=== PATIENT | male | born 2000 | race Caucasian/White ===

== ENCOUNTER 2020-02-19 16:28 | Outpatient (REF) | payer OTHER, SELFPAY | END 2020-02-19 16:29 | disposition home or self-care (01) | LOC: HO.LAB 16:28 | PROVIDERS: PCP Pediatrics; Visit Provider Internal Medicine | DX: Z20.828 Contact with and (suspected) exposure to other viral communicable diseases (principal) | CPT/HCPCS: U0003 ==

== ENCOUNTER → 2020-10-06 13:02 | Outpatient (BNVA) | payer OTHER, SELFPAY | PROVIDERS: Visit Provider Orthopaedic Surgery | DX: M67.431 Ganglion, right wrist (principal) | CPT/HCPCS: 20612 ==

== ENCOUNTER 2022-07-04 10:05 | Outpatient (REF) | payer OTHER, SELFPAY ==
--- NOTE | ~2022-07-04 | XR_ITS ---
EXAMINATION: XR CHEST CLINICAL INFORMATION: Chest pain. COMPARISON: None TECHNIQUE: 2 views of the chest were obtained. FINDINGS: No significant abnormality is noted involving the heart, lungs, mediastinum, bony thorax or soft tissues. XR/XR chest 2V IMPRESSION: No acute cardiopulmonary process.
== END 2022-07-04 10:06 | disposition home or self-care (01) ==
LOC: HO.HMGCX 10:05
PROVIDERS: PCP Internal Medicine; Visit Provider Internal Medicine
DX: R07.9 Chest pain, unspecified (principal)
CPT/HCPCS: 71046

== ENCOUNTER 2022-07-25 10:36 | Outpatient (REF) | payer OTHER, SELFPAY ==
[2022-07-25 11:30] LABS: MANUAL DIFF FLAG NO
[2022-07-25 11:51] LABS: Basophils Percent Auto 0.4 % (0-2); Eosinophils Absolute Auto 0.5 X10*3/uL (0.0-0.4); Eosinophils Percent Auto 5.2 % (0-4); Hemoglobin 14.5 g/dl (14.0-18.0); Imm Gran Abs Auto 0.03 X10*3/uL (0.00-0.03); Imm Gran Pct Auto 0.3 % (0.0-0.4); Lymphocytes Absolute Auto 2.9 X10*3/uL (1.2-4.9); Lymphocytes Percent Auto 30.8 % (20-40); Mean Corpuscular HGB Conc 33.7 g/dl (31.0-36.0); Mean Corpuscular Hemoglobin 29.8 pg (27.0-33.0); Mean Corpuscular Volume 88.5 fL (80.0-98.0); Mean Platelet Volume 10.1 fL (9.4-12.4); Monocytes Absolute Auto 0.7 X10*3/uL (0.1-1.2); Monocytes Percent Auto 7.2 % (2-11); Neutrophils Absolute Auto 5.3 x10*3/uL (2.0-8.3); Neutrophils Percent Auto 56.1 % (45-73); Platelet Count 260 X10*3/uL (160-400); Red Blood Count 4.86 X10*6/uL (4.60-5.80); Red Cell Distribution Width 12.8 % (11.0-16.0); White Blood Count 9.5 X10*3/uL (4.8-10.8)
[2022-07-25 12:30] LABS: Alanine Aminotransferase 21 U/L (0-40); Aspartate Amino Transferase 21 U/L (5-37); Cholesterol 186 mg/dL; Glucose Fasting 80 mg/dL (60-99); HDL Cholesterol 55 mg/dL; LDL Cholesterol Calculated 122 mg/dl; TSH reflex Free T4 1.66 uIU/mL (0.32-4.0); Triglycerides 49 mg/dL
[2022-07-26 07:19] LABS: HIV AB/AG Nonreactive (Nonreactive); HIV Num 1 0.07 S/CO (0.00-0.99)
== END 2022-07-25 10:37 | disposition home or self-care (01) ==
LOC: HO.HMGCLDS 10:36
PROVIDERS: PCP Internal Medicine; Visit Provider Internal Medicine
DX: Z00.01 Encounter for general adult medical examination with abnormal findings (principal); R68.89 Other general symptoms and signs; Z20.2 Contact with and (suspected) exposure to infections with a predominantly sexual mode of transmission
CPT/HCPCS: 36415; 80061; 82947; 84443; 84450; 84460; 85025; 87389

== ENCOUNTER 2022-11-05 11:35 | Emergency (ER) | payer OTHER, SELFPAY ==
--- NOTE | ~2022-11-05 | XR_ITS ---
EXAMINATION: XR ABDOMEN KUB CLINICAL INDICATION: Right-sided abdominal pain. Evaluate stool burden. COMPARISON: None available. TECHNIQUE: AP views of the abdomen. FINDINGS: Mild stool burden. Nonobstructive bowel gas pattern. No abnormal soft tissue calcification. No acute osseous abnormality. XR/XR KUB IMPRESSION: Mild stool burden.
[2022-11-05 11:42] VITALS: BP 130/78; PULSE 72; RESP 16; TEMP 35.8; O2SAT 99; BMI 28.1
--- NOTE | 2022-11-05 11:54 | ED.ABDPAIN ---
HPI - Abdominal Pain General Chief Complaint: Abdominal Pain Stated Complaint: constipation Time Seen by Provider: 11/05/22 11:49 Source: patient Mode of arrival: ambulatory Limitations: no limitations History of Present Illness HPI narrative: 21 yo male healthy here with complaints of constipation, now diarrhea. Was on vacation at [facility] last week. Had constipation so he took miralax on Sunday, had small liquid stool that night. Still felt he needed to move his bowels so took additional dose of miralax Sunday, then two tablets of magnesium citrate followed by a bottle of magnesium citrate. He had alot of diarrhea after that but still feels bloated and that he needs to move his bowels. Took milk of magnesium last night but still feeling like he needs to move his bowels. No abdominal pain, vomiting, fever, urinary symptoms. Related Data Home Medications Medication Instructions Recorded Confirmed No Known Home Meds 03/28/21 Allergies Allergy/AdvReac Type Severity Reaction Status Date / Time strawberry [STRAWBERRY] Allergy Unknown RASH Verified 07/25/22 10:08 Review of Systems Review of Systems Yes all other systems are reviewed and are negative Constitutional: Reports no additional constitutional complaints, Denies body ache(s), Denies chills, Denies fever(s), Denies headache(s) and Denies weakness Eyes: Reports no additional eye complaints and Denies change in vision Reports system reviewed and no additional complaints, except as documented, Denies dizziness, Denies headache(s), Denies nasal congestion, Denies nasal discharge and Denies neck pain Cardiovascular: Reports no additional cardiovascular complaints, Denies chest pain, Denies leg edema and Denies dyspnea Respiratory: Reports no additional respiratory complaints, Denies cough and Denies dyspnea Gastrointestinal: Reports no additional gastrointestinal complaints, Denies abdominal pain, Reports constipation, Denies diarrhea, Denies nausea and Denies vomiting Genitourinary: Denies urinary incontinence Musculoskeletal: Reports no additional musculoskeletal complaints, Denies back pain, Denies arthralgias, Denies joint swelling, Denies neck pain, Denies numbness and Denies tingling Skin/Breast: Reports system reviewed and no additional complaints, except as docu and Denies rash Reports system reviewed and no additional complaints, except as documented, Denies dizziness, Denies headache(s), Denies numbness, Denies tingling and Denies weakness [facility] Past Medical History Attestation statement: The following information was validated with the patient. Source: old records reviewed and nursing notes reviewed Medical History Annual visit for general adult medical examination with abnormal findings Arm fracture, left Depression with anxiety Ganglion cyst of dorsum of right wrist Lumbago syndrome Strain of right index finger Surgical History No pertinent past surgical history Family History Family History Father Hx of hyperlipidemia Paternal Aunt Hx of diabetes mellitus Mother Hx of diabetes mellitus Mental health disorder Maternal Grandmother Hx of diabetes mellitus Maternal Aunt Hx of diabetes mellitus Social History Social History Housing: House Alcohol intake: never Patient Tobacco Use Status: Never used Tobacco e-Cigarette/Vaping Use: Currently Using Substance Use Type: Marijuana Advance Directives: No Advance Directives Information Provided: Yes service: No Current occupational status: employed Cognitive needs: No Hearing needs: No Vision needs: No Physical Exam ED Vital Signs: Vital Signs - 24 hr 11/05/22 11:42 11/05/22 13:27 Temperature 96.5 F L 97.9 F Pulse Rate 72 80 Respiratory Rate 16 18 Blood Pressure 130/78 115/70 Pulse Oximetry 99 98 Oxygen Delivery Method Room Air Room Air BMI result Body Mass Index 28.1 Const General: cooperative, healthy appearing, comfortable and no acute distress Orientation/consciousness: patient oriented x3 Limitations: no limitations HENLA Head: Yes normal to inspection Ears: hearing grossly normal bilaterally Eyes General: appearance normal, both eyes and all related structures Pupils: Equal, round and reactive pupils present Neck Neck: Yes normal visual inspection and Yes full ROM Chest Chest palpation & inspection: normal inspection of the chest Resp Effort & Inspection: normal respiratory effort Auscultation: clear to auscultation bilaterally Cardio Rate: regular rate Rhythm: regular rhythm Peripheral pulses: Peripheral pulses 2+ throughout GI Inspection: Yes normal to inspection Palpation (GI): Soft to palpation, nontender and no guarding Auscultation: normal bowel sounds General: Yes no CVA tenderness Back/Spine/Pelvis Back: no CVA tenderness Thoracic/Lumbar Spine: thoracic and lumbar spine normal to inspection Skin General skin exam: no rashes or lesions noted Neuro General: patient oriented x3 and moves all extremities Cranial nerves: Yes Equal, round and reactive pupils present Cognition (Neuro): normal cognition Gait exam (Neuro): Normal gait present Extrem General: Yes normal to inspection, Yes no pedal edema and Yes no calf tenderness Course Course Course Narrative: X-ray shows mild constipation. Recommend patient initiate a bowel regimen. Reviewed worrisome signs and symptoms of when to return to the emergency room. Comfortable plan for discharge home. Medical Decision Making Medical Decision Making [facility] Narrative: 21 yo male here with constipation, now having diarrhea after taking miralax x2, magnesium citrate pills x2, magnesium citrate bottle x1 and milk of magnesium x1. Still feels bloated and that he needs to move his bowels. No focal abdominal pain or vomiting. Abdomen soft/nontender/nondistended. +BS on exam. Will check KUB. Low concern for abdominal pathology Differential Diagnosis Differential Diagnoses: The differential diagnosis associated with the presentation includes No risk factors for SBO (no abdominal surgical history) with a soft, nondistended, nontender abdomen with +BS and having stools at home Lab Data [facility] Lab Attestation statement: I reviewed the patient's lab results. 11/05/22 11:51 11/05/22 11:51 Labs: Lab Results 11/05/22 11/05/22 11/05/22 Range/Units 11:51 11:51 11:51 WBC 12.4 H (4.8-10.8) X10*3/uL RBC 4.88 (4.60-5.80) X10*6/uL Hgb 14.7 (14.0-18.0) g/dl Hct 43.7 (42.0-52.0) % MCV 89.5 (80.0-98.0) fL MCH 30.1 (27.0-33.0) pg MCHC 33.6 (31.0-36.0) g/dl RDW 12.8 (11.0-16.0) % Plt Count 250 (160-400) X10*3/uL MPV 9.8 (9.4-12.4) fL Immature Gran % (Auto) 0.2 (0.0-0.4) % Neut % (Auto) 33.9 L (45-73) % Lymph % (Auto) 29.7 (20-40) % [place] % (Auto) 4.8 (2-11) % Eos % (Auto) 30.8 H (0-4) % Baso % (Auto) 0.6 (0-2) % Lymph # (Auto) 3.7 (1.2-4.9) X10*3/uL [place] # (Auto) 0.6 (0.1-1.2) X10*3/uL Eos # (Auto) 3.8 H (0.0-0.4) X10*3/uL Baso # (Auto) 0.1 (0.0-0.2) X10*3/uL Abs Immat Gran (auto) 0.03 (0.00-0.03) X10*3/uL Absolute Neuts (auto) 4.2 (2.0-8.3) x10*3/uL Absolute Nucleated RBC 0.000 (0.0-0.012) X10*3/uL Nucleated RBC % (auto) 0.0 (0.0-0.2) /100WBC Smear Tech's Comments VERIFIED PT 12.8 (10.0-13.1) SEC INR 1.1 (0.9-1.1) Sodium 140 (135-145) mmol/L Potassium 4.4 (3.3-5.1) mmol/L Chloride 106 (96-108) mmol/L Carbon Dioxide 27 (22-29) mmol/L Anion Gap 11 L (12-20) BUN 16 (9-16) mg/dL Creatinine 0.89 (0.5-1.4) mg/dL Estim Creat Clear Calc 141.5 Estimated GFR > 60 Random Glucose 97 (60-115) mg/dL Calcium 10.3 H (8.4-10.2) mg/dL Magnesium 2.4 (1.6-2.6) mg/dL Total Bilirubin 0.6 (0.0-1.0) mg/dL Direct Bilirubin 0.2 (0.0-0.5) mg/dL AST 30 (5-37) U/L ALT 41 H (0-40) U/L Alkaline Phosphatase 75 (39-117) U/L Total Protein 7.1 (6.5-8.0) g/dL Albumin 4.3 (3.5-5.0) g/dL Independent Interpretation I performed an independent interpretation of an: Plain X-Ray Interpretation: I independetely reviewed the x-ray and agree with radiologist's report Radiology Impression Discussion of test interpretation with radiology: I have reviewed the radiologist's reading. Radiologist Impression: [address] [address] XRay Report Signed Patient: Chanelle Ramirez MR#: [id number] : 05/31/1949 Acct:[id number] Age/Sex: 73 / F ADM Date: 11/05/22 Loc: HO.ED Attending Dr: Ordering Physician: Marjorie Ordaz Date of Service: 11/05/22 Procedure(s): XR chest 2V Accession Number(s): [id number] cc: Marjorie Ordaz~ EXAMINATION: XR CHEST CLINICAL INFORMATION: Possible bowel obstruction. COMPARISON: Chest radiographs dated 07/30/2022. Chest CT scan dated 05/27/2021. TECHNIQUE: 2 views of the chest were obtained. FINDINGS: Coarsened interstitial markings are seen bilaterally. No focal consolidation or pleural effusions. The heart and mediastinal structures are unremarkable. XR/XR chest 2V IMPRESSION: Chronic interstitial changes correlating with previous studies without overt acute cardiopulmonary process. Discharge Plan Discharge Clinical Impression: Constipation Patient Disposition: Home, Self-Care Instructions: Constipation (DC), High Fiber Diet (ED) Additional Instructions: Increase fluid and fiber in the diet Start a bowel regimen including MiraLax and Colace daily Prescriptions: No Action No Known Home Meds Referrals: Poppy Evans MD [Primary Care Provider] - 1 week Interventions: ED Discharge Assessment Last Done: 11/05/22 13:32 Discharge Date/Time: 11/05/22 13:30
[2022-11-05 12:04] LABS: Basophils Absolute Auto 0.1 X10*3/uL (0.0-0.2); Basophils Percent Auto 0.6 % (0-2); Eosinophils Absolute Auto 3.8 X10*3/uL (0.0-0.4); Eosinophils Percent Auto 30.8 % (0-4); Hematocrit 43.7 % (42.0-52.0); Hemoglobin 14.7 g/dl (14.0-18.0); Imm Gran Abs Auto 0.03 X10*3/uL (0.00-0.03); Imm Gran Pct Auto 0.2 % (0.0-0.4); Lymphocytes Absolute Auto 3.7 X10*3/uL (1.2-4.9); Lymphocytes Percent Auto 29.7 % (20-40); Mean Corpuscular HGB Conc 33.6 g/dl (31.0-36.0); Mean Corpuscular Hemoglobin 30.1 pg (27.0-33.0); Mean Corpuscular Volume 89.5 fL (80.0-98.0); Mean Platelet Volume 9.8 fL (9.4-12.4); Monocytes Absolute Auto 0.6 X10*3/uL (0.1-1.2); Monocytes Percent Auto 4.8 % (2-11); Neutrophils Absolute Auto 4.2 x10*3/uL (2.0-8.3); Neutrophils Percent Auto 33.9 % (45-73); Platelet Count 250 X10*3/uL (160-400); Red Blood Count 4.88 X10*6/uL (4.60-5.80); Red Cell Distribution Width 12.8 % (11.0-16.0); SCAN SMEAR FLAG 1; White Blood Count 12.4 X10*3/uL (4.8-10.8)
[2022-11-05 12:06] LABS: INTERNATIONAL NORM RATIO 1.1 (0.9-1.1); Prothrombin Time 12.8 SEC (10.0-13.1)
[2022-11-05 12:12] LABS: Alanine Aminotransferase 41 U/L (0-40); Albumin Level 4.3 g/dL (3.5-5.0); Alkaline Phosphatase 75 U/L (39-117); Anion Gap 11 (12-20); Aspartate Amino Transferase 30 U/L (5-37); Bilirubin Direct 0.2 mg/dL (0.0-0.5); Bilirubin Total 0.6 mg/dL (0.0-1.0); Blood Urea Nitrogen 16 mg/dL (9-16); Calcium 10.3 mg/dL (8.4-10.2); Carbon Dioxide 27 mmol/L (22-29); Chloride 106 mmol/L (96-108); Creatinine Clr Calc Pharmacy 141.5; Estimated Glomerular Filt Rate > 60; Glucose Random 97 mg/dL (60-115); Magnesium 2.4 mg/dL (1.6-2.6); Potassium 4.4 mmol/L (3.3-5.1); Sodium 140 mmol/L (135-145); Total Protein 7.1 g/dL (6.5-8.0)
[2022-11-05 12:18] LABS: MANUAL DIFF FLAG SCAN
[2022-11-05 12:19] LABS: SLIDE REVIEW VERIFIED
[2022-11-05 13:27] VITALS: BP 115/70; PULSE 80; RESP 18; TEMP 36.6; O2SAT 98
--- NOTE | 2022-11-05 13:29 | PC.NURSE ---
aox4. calm, coopeartive. no distress noted. discharged this pt for his rn. no complaints. reviewed instructions. vss.
== END 2022-11-05 13:30 | disposition home or self-care (01) ==
PROVIDERS: Physician Assistant Medical; Emergency Provider Student in an Organized Health Care Education/Training Program; PCP Internal Medicine
DX: K59.00 Constipation, unspecified (principal); R10.2 Pelvic and perineal pain; R19.7 Diarrhea, unspecified; Z79.899 Other long term (current) drug therapy
CPT/HCPCS: 36415; 74018; 80053; 82248; 83735; 85025; 85610; 99282; 99283